=== PATIENT | female | born 1985 | race Caucasian/White ===

== ENCOUNTER 2018-11-05 22:53 | Emergency (ER) | payer BC, OTHER ==
--- NOTE | 2018-11-05 23:12 | EDPHY ---
General Time Seen by Provider: 11/05/18 23:02 Narrative: CLINICAL IMPRESSION: Left hand laceration ASSESSMENT/PLAN: 32-year-old female presents to the emergency department intoxicated after she fell down and lacerated the dorsum of her left hand. She denies any other injuries. Full range of motion of the hand. Distal neurovascular exam intact. Refusing tetanus vaccination. No evidence of foreign body or deep structure injury. Wound was anesthetized, cleaned and repaired as per chart notes. Wound care discussed, signs and symptoms of infection reviewed, warning signs return to ED sooner discussed and discharge. DIFFERENTIAL DIAGNOSIS: includes but not limited to laceration of tendon or vascular structure, underlying fracture, laceration with retained FB ED PROCEDURES: Laceration Repair Verbal consent obtained by patient. Risks discussed, including but not limited to infection, pain, retained foreign body, need for additional repair, poor cosmetic result, tendon damage, nerve damage, poor wound healing, vascular damage. Alternatives to repair discussed. [place] protocol used to establish correct patient, procedure, equipment, application support technician, and site. Anesthesia obtained by local infiltration. Anesthetized with 1% lidocaine without epi. Laceration location left hand, dorsal surface, length 2 cm, depth 3 mm, Repair type simple. Patient was prepped and draped in usual sterile fashion. Hemostasis achieved with direct pressure. Wound explored through full range of motion and entire depth of wound probed and visualized with gloved finger. No suspicion for nerve damage, tendon damage, underlying fracture, vascular damage, foreign body, or contamination. Area was cleansed with [place]ur-Clens and irrigated with sterile saline as per protocol. No foreign body or material removed. Repair method 5-0 Prolene running suture. One sutures placed. Well aligned, closely approximated. wound was dressed with bacitracin and bandage. Patient tolerated well with no immediate complications. Wound care: Clean and dry x 24 hours, gently clean with soap and water, cover with topical antibiotic ointment/bandage. Suture/Staple removal: 7-10 Days CHIEF COMPLAINT: Laceration left hand HPI: 32-year-old female right-hand dominant, presents to the emergency department with an acute laceration to the dorsum of the left hand. Patient reports that she tripped and fell on some steps. She is intoxicated. She denies any other injury or foreign body. No reports of numbness or loss of sensation to the hand. Full range of motion. Unsure of tetanus status but refusing tetanus vaccine tonight. PAST MEDICAL HISTORY: Hypertension Pertinent Past Surgical History: None reported Social History: Otherwise healthy REVIEW OF SYSTEMS: All other systems negative Constitutional: No fever, no chills Musculoskeletal: No deformity, no joint pain Skin: Laceration left hand Neurological: No sensory loss or weakness, 2 point discrimination intact. PHYSICAL EXAM: General Appearance: Alert, oriented, appropriate for age, cooperative, anxious , intoxicated NAD, well hydrated, non-toxic appearing, VSS, no hypoxia. Neurological: Alert and oriented x 3 Skin: 2 cm linear laceration to the dorsum of the left hand. Musculoskeletal: Full range of motion of the hand, laborer cement gun placing strength 5/5, distal neurovascular exam intact MEDICAL DECISION MAKING: Patient was seen independently. Secondary supervising physician at time of evaluation was Dr. Barnhart. Diagnosis: Left hand laceration. New, requires workup Summary: See assessment and plan for summary of ED visit Patient Progress Stable for d/c . - History Smoking Status: Never smoked - Objective Vital Signs: Initial Vital Signs Temperature (C) 36.6 C 11/05/18 23:01 Heart Rate 86 11/05/18 23:01 Respiratory Rate 16 11/05/18 23:01 Blood Pressure 139/95 H 11/05/18 23:01 O2 Sat (%) 98 11/05/18 23:01 O2 Delivery Mode Room Air Allergies/Adverse Reactions: cefaclor [From Ceclor] Allergy (Verified 11/05/18 23:05) Home Medications: Medication Instructions Recorded Atenolol 11/05/18 Departure - Departure Disposition: Home, Routine, Self-Care Clinical Impression: Hand laceration Qualifiers: Encounter type: initial encounter Foreign body presence: without foreign body Laterality: left Qualified Code(s): S61.412A - Laceration without foreign body of left hand, initial encounter Condition: Good Instructions: Laceration (ED) Additional Instructions: DISCHARGE INSTRUCTIONS FROM YOUR DOCTOR Thank you for visiting our emergency department today. You were treated by a physician chef's assistant today and your case was reviewed with our ED Attending physician. Please keep in mind that discharge from the emergency department does not mean that there is nothing wrong - it simply means that we have not identified an emergency condition that requires further evaluation or treatment in the hospital. You should always plan to follow up with primary care for re- evaluation of your condition in the next 2-3 days. If you have been referred to a specialist, please call as soon as possible (today or tomorrow) to schedule your follow up appointment at the appropriate time. PLEASE HAVE SUTURES/KVNG REMOVED IN 7-10 DAYS. YOU CAN RETURN TO THE EMERGENCY DEPARTMENT OR YOUR PRIMARY CARE FOR SUTURE/STAPLE REMOVAL. AVOID SUBMERGING SUTURES/KVNG UNDERWATER FOR PROLONGED PERIOD OF TIME UNTIL REMOVED. KEEP WOUND CLEAN AND DRY, COVER WITH ANTIBIOTIC OINTMENT AND BAND-AID. RETURN TO EMERGENCY DEPARTMENT FOR REDNESS, SWELLING, DISCHARGE, WARMTH TO THE SKIN, OR ANY OTHER CONCERNS FOR INFECTION. People present with illnesses and injuries in different ways, and it is always possible that we have missed something. You may always return for re-evaluation if symptoms worsen or if they are not improving or if you develop new/different symptoms. Again, thank you for choosing our emergency department. We hope that you feel better. Referrals: Jossue Abdi MD [Primary Care Provider] - As per Instructions
[2018-11-05 23:46] VITALS: BP 147/101
== END 2018-11-05 23:46 | disposition home or self-care (01) ==
LOC: EEVIPCON 22:53
PROC: 0HQGXZZ Repair Left Hand Skin, External Approach (ICD-10-PCS; principal; 2018-11-05)
DX: S61.412A Laceration without foreign body of left hand, initial encounter (principal); W10.9XXA Fall (on) (from) unspecified stairs and steps, initial encounter